=== PATIENT | male | born 1990 ===

== ENCOUNTER → 2018-05-15 09:18 | Day surgery (SDC) | payer SELFPAY ==
[~2018-05-15 09:18] MED LIST: Buffered Lidocaine 0.9% SYRIN* 5 ML/SYR SYRINGE INTRADERM ONE; Dexamethasone TAB* 4 MG ONE; Dexamethasone TAB* 4 MG PO ONE; DiMENhydriNATE IV* 50 MG/ML VIAL IV PUSH PRN; Famotidine IV* 10 MG/ML 2 ML (20 mg) IV ONE; Famotidine IV* 10 MG/ML 2 ML (20 mg) ONE; Gabapentin CAP(*) 300 MG ONE; Gabapentin CAP(*) 300 MG PO ONE; KETAMINE HCL* 50 MG/ML 10 ML VIAL ONE; Ketorolac INJ* 30 MG/ML 1 ML VIAL ONE; Lidocaine 1% MPF wEPI 200,000* 30 ML SDV ONE; Lidocaine 2% PF * 5 ML VIAL ONE; Midazolam* 1 MG/ML 5 ML VIAL (5 MG) ONE; Naloxone* 0.4 MG/ML 1 ML VIAL IV PRN; Ondansetron ODT TAB* 4 MG ONE; Ondansetron TAB* 4 MG PO ONE; PROCHLORPERAZINE INJ 5 MG/ML 2 ML VIAL IV PRN; PROCHLORPERAZINE INJ 5 MG/ML 2 ML VIAL ONE; Propofol* 10 MG/ML 20 ML BTL IV PUSH ONE; ROPIVACAINE 5 MG/ML 30 ML BTL (0.5%) ONE; ceFAZolin 2 GM PREMIX (*) 2 GM/50 ML BAG IVPB ONE; fentaNYL* 50 MCG/ML 2 ML VIAL (100 MCG VIAL) IV PRN; fentaNYL* 50 MCG/ML 2 ML VIAL (100 MCG VIAL) ONE; oxyCODONE/Acetamin 5/325 MG* TAB PO PRN
[2018-05-15 15:57] VITALS: BP 142/86
--- NOTE | 2018-05-16 02:12 | OP ---
CC: Dr. Washington Andrade; [facility] OPERATIVE REPORT: DATE OF OPERATION: 05/15/18 DATE OF : 89 SURGEON: Washington Andrade MD [employer]: None. ANESTHESIOLOGIST: Dr. Daigle. ANESTHESIA: General anesthetic, local infiltration by the surgeon. PRE-OP DIAGNOSIS: Right inguinal hernia. POST-OP DIAGNOSIS: Right inguinal hernia. OPERATIVE PROCEDURE: Open repair of right inguinal hernia with mesh. DESCRIPTION OF PROCEDURE: The patient was supine on the operating room table. After adequate general anesthetic, compression stockings, Luisa Hugger warmer, and intravenous antibiotics, the right groin was prepped with antiseptic and draped in a sterile fashion. Approximately 3 cm to 4 cm incision was created in the right groin and carried down to the external oblique, which was opened in the direction of its fibers. Cord structures were encircled with the [place] drain, tented upward and the hernia sac was identified in the usual location, it was taken off the cord structures and reduced and a cone mesh plug was placed into the internal ring, sutured there with 2-0 Vicryl. A second piece of mesh was placed over the inguinal floor, sutured at the tubercle tails , was split, brought around the cord structures, and tacked down laterally. External oblique was closed over top with 2- 0 Vicryl, Gabe's with 3-0 Vicryl , and skin with 4-0 Prolene, followed by the sterile dressing. He tolerated the procedure well, was awakened, and brought to Recovery in good condition. No complications. No drains. No pathologic specimens. Sponge and instrument counts were correct. Estimated blood loss almost nil. [id number]/[facility] [place] #: [id number] [facility]
== END | disposition home or self-care (01) ==
LOC: OR 09:18
PROVIDERS: ATTEND Surgery
DX: K40.90 Unilateral inguinal hernia, without obstruction or gangrene, not specified as recurrent (principal); Z72.0 Tobacco use; B19.20 Unspecified viral hepatitis C without hepatic coma; F19.11 Other psychoactive substance abuse, in remission
CPT/HCPCS: A9270-GY; C1781; J0690; J0780; J1885; J2001; J2250; J2704; J2795; J3010; J8540